=== PATIENT | male | born 1955 | race Two or more races ===

== ENCOUNTER 2019-02-24 09:05 | Inpatient (IN) | payer SELFPAY ==
[2019-02-24] MEDS ORDERED: NS 0.9% 1000 ML** 1,000 ML IV ONE ×2 (09:20→10:45)
[2019-02-24] MEDS ORDERED: Morphine 4 MG/ML VIAL (1 ml) 4 MG/ML VIAL IV ONE (09:20)
[2019-02-24] MEDS ORDERED: Ondansetron INJ* 2 MG/ML VIAL IV ONE (09:20)
--- NOTE | 2019-02-24 09:27 | ED ---
HPI Diabetic - HPI Summary HPI Summary: Patient is a 63 y/o diabetic male who presents to [facility] with complaints of high BG, abdominal pain and N/V. Family is in the room. Patient primarily speaks Upper Sorbian, family assists with translation. Patient has not been taking his Janumet for the past four days. Per triage, "pt comes to the ER with elevated blood sugars in the 400's this morning". Abdominal pain has been diffuse. He notes that he has had around 10-15 episodes of emesis over the past four days. Patient has also been experiencing intermittent chills and hot flashes. He denies Hx of DKA or any other medical issues with exception of diabetes. PSHx of left inguinal hernia repair. He denies tobacco, alcohol, and substance usage. FMHx of diabetes is noted. Patient lives in the [place] and is here in [place] helping family move. On triage, pain is rated 7/10, nothing is noted to aggravate/alleviate Sx. Home medications and allergies are reviewed. - History Of Current Complaint Chief Complaint: EDDiabeticProb Hx Obtained From: Patient, Family/House Nurse Onset/Duration: Lasting Days, Still Present Timing: Days Severity Currently: Severe Character: Alert Aggravating: Nothing Alleviating: Nothing Associated Signs & Symptoms: Abdominal Pain, Chills, Nausea, Vomiting - Allergies/Home Medications Allergies/Adverse Reactions: Allergies Allergy/AdvReac Type Severity Reaction Status Date / Time No Known Allergies Allergy Verified 02/24/19 09:11 Home Medications: Home Medications Sitagliptin Phos/Metformin HCl [Janumet 50-1000 mg] 1 tab PO BID 02/24/19 [ History Confirmed 02/24/19] PMH/Surg Hx/FS Hx/Imm Hx Endocrine/Hematology History: Reports: Hx Diabetes Cardiovascular History: Denies: Hx Hypertension - Surgical History Surgery Procedure, Year, and Place: left inguinal hernia repair Infectious Disease History: No Infectious Disease History: Denies: Traveled Outside the [place] in Last 30 Days - Family History Known Family History: Positive: Diabetes - Social History Alcohol Use: None Substance Use Type: Reports: None Smoking Status (MU): Never Smoked Tobacco Review of Systems Constitutional: Other - positive - hot flashes, elevated BG Positive: Chills Positive: Abdominal Pain, Vomiting, Nausea All Other Systems Reviewed And Are Negative: Yes Physical Exam - Summary Physical Exam Summary: Constitutional: Well-developed, Well-nourished, Alert. (-) Distressed Skin: Warm, Dry HENT: Normocephalic; Atraumatic Eyes: Conjunctiva normal Neck: Musculoskeletal ROM normal neck. (-) JVD, (-) Stridor, (-) Tracheal deviation Cardio: Rhythm regular, rate normal, Heart sounds normal; Intact distal pulses; Radial pulses are 2+ and symmetric. (-) Murmur Pulmonary/Chest wall: Effort normal. (-) Respiratory distress, (-) Wheezes, (-) Rales Abd: Soft, Diffuse abdominal tenderness, particularly in the epigastrium; (-) Distension, (-) Guarding, (-) Rebound Musculoskeletal: (-) Edema Lymph: (-) Cervical adenopathy Neuro: Alert, Oriented x3 Psych: Mood and affect Normal Triage Information Reviewed: Yes Vital Signs On Initial Exam: Initial Vitals Temp Pulse Resp BP Pulse Ox 97.6 F 129 16 121/88 99 02/24/19 09:06 02/24/19 09:06 02/24/19 09:06 02/24/19 09:06 02/24/19 09:06 Vital Signs Reviewed: Yes Diagnostics - Vital Signs Vital Signs Temp Pulse Resp BP Pulse Ox 02/24/19 09:06 97.6 F 129 16 121/88 99 - Laboratory Result Diagrams: 02/24/19 10:09 02/24/19 10:09 Lab Statement: Any lab studies that have been ordered have been reviewed, and results considered in the medical decision making process. - CT CT ABD/PEL CT Interpretation Completed By: Radiologist Summary of CT Findings: IMPRESSION: 1. MID TO DISTAL SMALL BOWEL OBSTRUCTION WHICH APPEARS TO BE SECONDARY TO A LEFT INGUINAL. HERNIA. 2. DIFFUSE GALLBLADDER WALL THICKENING WHICH CAN BE FURTHER EVALUATED WITH A RIGHT UPPER. QUADRANT ULTRASOUND. 3. COMPLEX RIGHT RENAL CYST RECOMMEND A RENAL ULTRASOUND FOR FURTHER EVALUATION. 4. NONOBSTRUCTING RIGHT RENAL CALCULI. THIS REPORT WAS REVIEWED BY DR. GUEVARA Re-Evaluation - Re-Evaluation First Eval Re-Evaluation Time: 13:00 Comment: CT ABD/PEL were discussed, he notes that he has not had a bowel movement in four days at this time. Diabetic Course/Dx - Course Course Of Treatment: Patient is here with a small bowel obstruction and hyperglycemia. Patient is not in DKA per her labs. Patient had a CT scan which showed a belt struck the transition point at the site of a left inguinal hernia. Patient clinically does not have a left inguinal hernia. Surgery was called and agreed that there was no hernia. Patient had NG tube placed. Patient is admitted to medicine - Diagnoses Provider Diagnoses: SBO (small bowel obstruction), Hyperglycemia, Vomiting, Abdominal pain - Physician Notifications Discussed Care Of Patient With: Ursula Villagomez Time Discussed With Above Provider: 13:12 Instructed by Provider To: Other - Patient's case was discussed with Dr. Villagomez, Dr. Villagomez will review scan and come to ED to evaluate the patient. 1410 - Dr. Villagomez in room to evaluate the patient. 1426 - Patient's case was discussed, Dr. Villagomez recommends admit to hospitalist, NG tube, NPO. 1442 - Dr. Garza accepts for admission. Discharge ED - Sign-Out/Discharge Documenting (check all that apply): Patient Departure - admit - Discharge Plan Condition: Stable Disposition: ADMITTED TO [facility] Referrals: No Primary Care Phys,NOPCP [Primary Care Provider] - - Billing Disposition and Condition Condition: STABLE Disposition: Admitted to [facility] - Attestation Statements Document Initiated by Mulugeta: Yes Documenting Scribe: ERIK STUBBS Provider For Whom Reginoe is Documenting (Include Credential): WERNER GUEVARA MD Scribe Attestation: ERIK Iraheta, scribed for WERNER GUEVARA MD on 02/24/19 at 1651. Scribe Documentation Reviewed: Yes Provider Attestation: The documentation as recorded by the ERIK toussaint accurately reflects the service I personally performed and the decisions made by me, WERNER GUEVARA MD Status of Scribe Document: Viewed Procedures - Sedation Patient Received Moderate/Deep Sedation with Procedure: No
[2019-02-24 10:23] LABS: ABS Eosinophils 0.1 10^3/ul (0-0.6); ABS Lymphocytes 0.8 10^3/ul (1.0-4.8); ABS Monocytes 0.5 10^3/ul (0-0.8); ABS Neutrophils 2.7 10^3/ul (1.5-7.7); Eosinophil % 1.5 %; Hematocrit 44 % (42-52); Hemoglobin 15.2 g/dL (14.0-18.0); Lymphocyte % 19.5 %; Mean Corpuscular HGB Conc 34 g/dL (31-36); Mean Corpuscular Hemoglobin 31 pg (27-31); Mean Corpuscular Volume 91 fL (80-94); Mean Platelet Volume 9.1 fL (7.4-10.4); Nucleated Red Blood Cells % 0.1; Platelet Count 260 10^3/uL (150-450); Red Blood Count 4.88 10^6 /uL (4.18-5.48); Red Cell Distribution Width 13 % (10-15); White Blood Count 4.1 10^3/uL (3.5-10.8)
[2019-02-24 10:39] LABS: Albumin 4.8 g/dL (3.2-5.2); Albumin/Globulin Ratio 1.5 (1-3); BUN/Creatinine Ratio 32.8 (8-20); Calcium 9.9 mg/dL (8.6-10.3); EGFR African American 72.6 (>60); Globulin 3.2 g/dL (2-4)
[2019-02-24 10:51] LABS: Potassium 4.5 mmol/L (3.5-5.0)
[2019-02-24] MEDS ORDERED: Iodixanol* (CONTRAST) 320 MG/ML 100 ML SDV IV ONE (11:06)
--- NOTE | 2019-02-24 15:33 | CONS ---
CONSULTATION REPORT: DATE OF CONSULT: 02/24/19 SERVICE: General Surgery. ATTENDING SURGEON: Dr. Ursula Villagomez. REASON FOR CONSULT: Small bowel obstruction. HISTORY OF PRESENT ILLNESS: Mr. Salinas is a very pleasant 63-year-old gentleman with a history of diabetes who presents to the emergency room with complaints of 4 days of epigastric abdominal pain, nausea, and vomiting as well as hyperglycemia. He was found to have blood glucose levels into the 400s. However, given his history of the nausea and vomiting, an abdominal CT scan was performed that showed a small bowel obstruction with a transition point near the left inguinal region. The patient is accompanied today by his family members. He is originally from the [place] and is visiting [place] to see his family. He says that he was in his normal state of health until Tuesday of this week. He says that he started developing periumbilical abdominal pain. He said after this he had vomiting, and then after he vomited, he noticed that his left inguinal hernia was bothering him; however, when he did not vomit, he did not notice any bulge in his left inguinal region. He says that the bulge in his left inguinal canal occurred after the vomiting and not before. Since Tuesday, he has continued to have abdominal pain, vomiting, and inability to tolerate much p.o. He also says that he has not passed any gas or had a bowel movement since Tuesday. He has a history of having a right inguinal hernia repair that was done in approximately 2005 done [facility] in [facility]. He said at that time his surgeon told him he had a very small left inguinal hernia. He said that his left inguinal hernia has never bothered him at all until he started vomiting recently and then it began to protrude. He said he last vomited yesterday evening. Currently, he has no complaints about his inguinal canal. He complains only of having some abdominal pain. PAST MEDICAL HISTORY: Diabetes. PAST SURGICAL HISTORY: Open right inguinal hernia repair. MEDICATIONS: Janumet mg p.o. b.i.d. ALLERGIES: No known drug allergies. FAMILY HISTORY: Positive for diabetes. SOCIAL HISTORY: The patient lives in the [place]. He is a nonsmoker. REVIEW OF SYSTEMS: Negative except for abdominal pain and emesis. PHYSICAL EXAM: Vital Signs: Temperature is 97.6, pulse is 90s to 100, respiratory rate is 19, O2 sat is 96% O2 on room air, blood pressure is 125/82. General: He is an older gentleman, lying on the stretcher, in no apparent distress, conversing easily. HEENT is normocephalic, atraumatic. Cardiovascular is regular rate and rhythm. Respiratory is clear to auscultation bilaterally. Abdomen is soft, minimally distended, not significantly tender, but the patient does have subjective pain with palpation throughout all 4 quadrants. Examination of the right inguinal region shows a well-healed open inguinal hernia incision. There is no evidence of right inguinal hernia with Valsalva while the patient is supine. In the left inguinal canal upon Valsalva while the patient is supine, there is no small bowel present in the inguinal canal. The inguinal canal deep ring is easily palpable. When the patient Valsalva, there is a bulge that can be felt at the tip of my finger at the inguinal canal. DIAGNOSTIC STUDIES/LAB DATA: White blood cell count is 4, hemoglobin is 15.2, hematocrit is 44, platelets are 260. Sodium is 129, potassium is 4.5, chloride is 87, CO2 is 27, BUN is 40, creatinine is 1.2, glucose is 421, lactic acid is 1 , calcium is 9.9. Total bilirubin is 2, AST is 17, ALT is 15, alkaline phosphatase is 89. Lipase is 33. Imaging/Radiology: Abdomen/pelvis CT with p.o. and IV contrast shows moderate distention of the proximal and mid small bowel. There is a transition point in the left lower quadrant and left inguinal region. There appears to be a hernia in that region containing fat and likely a portion of small bowel given that there is a transition point at that level. Appendix appears within normal limits. There are scattered diverticula. Diffuse gallbladder wall thickening, which can be further evaluated with a right upper quadrant ultrasound. Complex right renal cyst, recommend a renal ultrasound. Nonobstructing right renal calculi. ASSESSMENT AND PLAN: Mr. Salinas is a 63-year-old gentleman with a history of diabetes who comes in with hyperglycemia and abdominal pain, nausea, and vomiting for approximately [address] scan, he appears to have a small bowel obstruction with a transition point near the left inguinal region. I have reviewed this imaging and discussed this with the radiologist, Dr. Nguyen. There is small bowel in the transition point that is located near the left inguinal canal; however, the bowel does not appear to go through the actual inguinal canal, but it sits very close in proximity to it. There does appear to be fat contained within the inguinal canal. Furthermore, on my physical exam, he does not have any hernia contents within the left inguinal canal which can be palpated and the defect appears to be open. He does have a history of open right inguinal hernia repair in the past, but no other abdominal surgical history. Given that he does not have any evidence of incarcerated left inguinal hernia either on physical exam or definitively on abdominal CT imaging, I would recommend that the patient be admitted to Medicine. He requires control of his hyperglycemia and his electrolyte abnormalities. He should be made n.p.o. and have an NG tube placed. It would be best to have decompression of his small bowel at this time and then to determine whether or not he should undergo possibly a diagnostic laparoscopy with an transabdominal preperitoneal inguinal hernia repair at that time versus continued conservative management. Surgery will continue to follow. I discussed this with patient and Dr. Heller fro the ED and all are in agreement with this plan. [id number]/[facility] #: [id number] MTDJoselo
[2019-02-24] MEDS ORDERED: Ondansetron INJ* 2 MG/ML VIAL IV PRN (15:53)
[2019-02-24] MEDS ORDERED: Dextrose 50% VIAL 50 ml IV PUSH PRN (15:56)
[2019-02-24] MEDS ORDERED: Morphine INJ* 2 MG/ML 1 ML SYRINGE (TWO MG - NEW SYRINGE VERSION) IV PRN (15:59)
[2019-02-24] MEDS: NS 0.9% 1000 ML** 1,000 ML IV SCH (17:25)
[2019-02-24] MEDS: Pantoprazole IV* 40 MG IV SCH (17:42)
[2019-02-24] MEDS: Insulin LISPRO* 1 UNITS UNIT SUBCUT SCH (17:44)
--- NOTE | 2019-02-24 18:16 | HP ---
CC: Dr. Guerrero" in the [place] * HISTORY AND PHYSICAL: DATE OF ADMISSION: 02/24/19 PROVIDER: Laxmi Hernández NP PRIMARY CARE PROVIDER: Dr. Guerrero" in the [place]. ATTENDING PHYSICIAN WHILE IN THE HOSPITAL: Dr. Jackie Haro * (dictated by Laxmi Hernández NP). CHIEF COMPLAINT: Abdominal pain, nausea, and vomiting. HISTORY OF PRESENT ILLNESS: Mr. Salinas is a 63-year-old male with a past medical history significant for diabetes for which he takes oral medications, who presented to the emergency room with complaints of high blood sugar, abdominal pain, nausea, and vomiting. The patient primarily speaks Irish, but does understand some Greek. Family does help with translation. The patient does report that he has had abdominal pain for 4 days with nausea and vomiting, unable to tolerate food and fluids x4 days. He has not been taking his meds at home. This morning, his blood sugar was over 400 at home, so he presented to the emergency room for further evaluation. While in the emergency room, the patient was found to have a small bowel obstruction. He was seen by Dr. Villagomez from Surgery, who recommended an NG. Due to the patient's small bowel obstruction and hyperglycemia, Hospital Medicine was asked to see and evaluate the patient for admission. PAST MEDICAL HISTORY: Significant for type 2 diabetes. PAST SURGICAL HISTORY: Hernia repair in 2005. HOME MEDICATIONS: Include Janumet. ALLERGIES: No known drug allergies. FAMILY HISTORY: No reported history of coronary artery disease. Mother with diabetes. No reported history of cancer. SOCIAL HISTORY: Denies any tobacco, alcohol, or illicit drug use. He is . Surrogate decision maker in the event he is unable to make his own decisions is his daughter. He is a full code. REVIEW OF SYSTEMS: He denies any fevers, unintended weight loss, chest pain, edema, cough, hemoptysis, or shortness of breath. He does report nausea, vomiting. Denies any diarrhea. He does report diffuse abdominal pain x4 days. Denies any hematuria, dysuria, focal weakness, sensory loss, visual complaints, dysphagia, arthralgias, myalgias, rashes, lesions, open sores, psychosis, or anxiety. PHYSICAL EXAMINATION GENERAL: At this time, Mr. Salinas is a 63-year-old male. He is alert and oriented, resting on the stretcher in the emergency room. He is in no acute distress. VITAL SIGNS: Blood pressure 121/71, heart rate 101, respirations 16, O2 saturation 96%, temperature was 97.6. HEENT: Head is atraumatic, normocephalic. Eyes: EOMs are intact. Sclerae anicteric and not pale. Oral mucosa appeared to be moist. NECK: Supple. LUNGS: Clear to auscultation bilaterally. No wheezes, rales, or rhonchi. CARDIAC: S1, S2. Regular rate and rhythm. No murmurs, rubs, or gallops. ABDOMEN: Soft and nontender. Bowel sounds are present x4, they are hypoactive and high-pitched in the lower abdomen. EXTREMITIES: He is able to move all 4 extremities. There is no clubbing or cyanosis. NEUROLOGIC: He is awake, alert, oriented x3. Speech is clear. Thought process is intact. There are no gross focal deficits. SKIN: Intact. DIAGNOSTIC STUDIES/LAB DATA: WBCs are 4.1, RBCs 4.88, hemoglobin 15.2, hematocrit 44, platelet count is 260. Sodium 129; potassium 4.5; chloride 87; carbon dioxide was 27; anion gap was 15; BUN was 40; creatinine 1.22; glucose was 421, repeat was 306; lactic acid was 1.0; calcium 9.9. Total bilirubin 2.00 , ASTs were 17, ALTs were 15, alkaline phosphatase was 89. Lipase was 33. Urine is currently pending. He had a CT of the abdomen and pelvis, radiologist's impression: 1. Mid to distal small bowel obstruction appears to be secondary to left inguinal hernia. 2. Diffuse gallbladder wall thickening, which can be further evaluated with a right upper quadrant ultrasound. Complex renal cyst, recommend ultrasound for further evaluation. Nonobstructing right renal calculi. ASSESSMENT AND PLAN: Mr. Salinas is a 63-year-old male with type 2 diabetes, who will be admitted to the hospital for small bowel obstruction. 1. Small bowel obstruction. The patient was seen by Surgery, who recommended NG and small bowel decompression. NG has been placed to low intermittent wall suction. We will continue with IV fluids. The patient will be n.p.o. Abdomen is currently soft and nontender at this time. We will continue with serial abdominal exams. 2. Left renal cyst. Radiology has recommended a renal ultrasound for further evaluation of this. This could be followed up with his primary care provider. 3. Diabetes. The patient has type 2 diabetes. I will hold his Janumet and place him on lispro sliding scale with Accu-Cheks every 6 hours while he is n.p.o. 3. FEN: He is n.p.o. 4. Code status: He is a full code. 5. DVT prophylaxis: I will place him on SCDs. 6. Disposition: The patient will be placed inpatient on medical floor, short- stay surgical. TIME SPENT: Time spent on this admission was approximately 60 minutes, greater than half that time was spent at the bedside reviewing events leading thus far to his hospitalization, performing physical exam, and reviewing my plan of care. I have discussed this with my attending, Dr. Jackie Haro; she is in agreement with my plan. LAXMI HERNÁNDEZ, ALANA [id number]/[facility] #: [id number] DAGOBERTO
[2019-02-25] MEDS: Insulin LISPRO* 1 UNITS UNIT SUBCUT SCH ×5 (00:29→21:56)
[2019-02-25] MEDS: NS 0.9% 1000 ML** 1,000 ML IV SCH ×3 (03:18→16:52)
[2019-02-25 03:40] LABS: Urine Appearance Cloudy; Urine Bilirubin Negative (Negative); Urine Blood Negative (Negative); Urine Color Yellow; Urine Glucose 3+(>=500 mg/dL) (Negative); Urine Ketones 2+ (Negative); Urine Nitrite Negative (Negative); Urine Protein Negative (Negative); Urine Specific Gravity 1.033 (1.010-1.030); Urine Urobilinogen Negative (Negative)
[2019-02-25 06:00] LABS: ABS Eosinophils 0.1 10^3/ul (0-0.6); ABS Monocytes 0.5 10^3/ul (0-0.8); ABS Neutrophils 2.9 10^3/ul (1.5-7.7); Eosinophil % 2.1 %; Hematocrit 42 % (42-52); Hemoglobin 13.9 g/dL (14.0-18.0); Lymphocyte % 21.9 %; Mean Corpuscular HGB Conc 33 g/dL (31-36); Mean Corpuscular Hemoglobin 31 pg (27-31); Mean Corpuscular Volume 92 fL (80-94); Mean Platelet Volume 9.1 fL (7.4-10.4); Platelet Count 268 10^3/uL (150-450); Red Blood Count 4.55 10^6 /uL (4.18-5.48); Red Cell Distribution Width 13 % (10-15); White Blood Count 4.5 10^3/uL (3.5-10.8)
[2019-02-25 06:22] LABS: Calcium 9.1 mg/dL (8.6-10.3); EGFR African American 114.8 (>60); EGFR Non-African American 94.9 (>60); Potassium 3.8 mmol/L (3.5-5.0)
--- NOTE | 2019-02-25 09:38 | PN ---
Subjective Date of Service: 02/25/19 Interval History: Patient seen resting in bed. States that he has passed flatus three times this AM, denies nausea/vomiting, feels hungry. NG tube draining scant amounts of dark green/brown fluid. Denies fever, chills, chest pain, or shortness of breath. No acute distress noted. Family History: Unchanged from Admission Social History: Unchanged from Admission Past Medical History: Unchanged from Admission Objective Active Medications: Dextrose (Dextrose 50% Vial 50 Ml*) 25 ml IV PUSH .FOR FS < 60 - SS PRN PRN Reason: FS < 60 Sodium Chloride (Ns 0.9% 1000 Ml) 1,000 mls @ 100 mls/hr IV PER RATE [facility] Last Admin: 02/25/19 03:18 Dose: 100 mls/hr Insulin Human Lispro (Humalog*) 0 units SUBCUT Q6HR [facility]; Protocol Last Admin: 02/25/19 06:22 Dose: 2 units Morphine Sulfate (Morphine Inj (Syringe))*) 2 mg IV Q4H PRN PRN Reason: PAIN - SEVERE Ondansetron HCl (Zofran Inj*) 4 mg IV Q4H PRN PRN Reason: NAUSEA/VOMITING Pantoprazole Sodium (Protonix Iv*) 40 mg IV Q24H [facility] Last Admin: 02/24/19 17:42 Dose: 40 mg Vital Signs - 8 hr 02/25/19 02/25/19 02/25/19 03:17 07:22 08:00 Temperature 98.5 F 98.3 F Pulse Rate 101 100 Respiratory 16 18 18 Rate Blood Pressure 122/60 113/61 (mmHg) O2 Sat by Pulse 99 97 Oximetry Oxygen Devices in Use Now: None Appearance: Well developed gentleman seen resting in bed, no acute distress. Eyes: No Scleral Icterus, PERRLA Ears/Nose/Mouth/Throat: NL Teeth, Lips, Gums, Clear Oropharnyx, - - Mucous membranes slightly dry. NG tube in place draining scant amoun of dark green/ brown gastric contents. Neck: NL Appearance and Movements; NL JVP, Trachea Midline Respiratory: Symmetrical Chest Expansion and Respiratory Effort, Clear to Auscultation, - - Diminished in bases. Cardiovascular: NL Sounds; No Murmurs; No JVD, RRR, No Edema Abdominal: NL Sounds; No Tenderness; No Distention Lymphatic: No Cervical Adenopathy Extremities: No Edema, No Clubbing, Cyanosis Skin: No Rash or Ulcers, No Nodules or Sclerosis Neurological: Alert and Oriented x 3, NL Sensation Lines/Tubes/Other Access: Clean, Dry and Intact Peripheral IV Nutrition: - - NPO due to NG tube Result Diagrams: 02/25/19 05:44 02/25/19 05:44 Assess/Plan/Problems-Billing Assessment: This is a 63 year old with a PMH of right inguinal hernia with repair who was admitted 02/24/19 for bowel obstruction, likely due to left inguinal hernia. Patient is from the [place], wishes to go back home to undergo left hernia repair with the surgeon who fixed the right side. - Patient Problems (1) Bowel obstruction Current Visit: Yes Status: Acute Code(s): K56.609 - UNSP INTESTNL OBST, UNSP TO PARTIAL VERSUS COMPLETE OBST SNOMED Code(s): 86817826 Comment: -Likely due to left inguinal hernia. Dr. Villagomez has been consulted, recommended conservative management. Patient is improving, is passing flatus today, denies abdominal pain, abdomen is soft, non-tender, hypoactive +BSx4 and he feels hungry. Surgery agrees it is a good idea to remove NG tube, start clear liquids. -Continue protonix. -Patient is from the [place] and would like to return home though Dr. Zayas will likely offer a robotics guided hernia repair on Tuesday if he wants to stay for it. (2) Metabolic alkalosis Current Visit: Yes Status: Acute Code(s): E87.3 - ALKALOSIS SNOMED Code(s) : 8855760 Comment: -Anion gap of 16, noted fruity breath. Alkalosis likely due to NG tube aspiration of gastric contents. NG tube to be removed this AM. Will monitor. -Continue IV fluids. (3) Left renal mass Current Visit: Yes Status: Acute Code(s): N28.89 - OTHER SPECIFIED DISORDERS OF KIDNEY AND URETER SNOMED Code(s): 806990615 Comment: -Cyst discovered in imaging. Radiology has recommended renal ultrasound for further evaluation. Patient should follow up with primary care provider about this. (4) Diabetes type 2, uncontrolled Current Visit: Yes Status: Acute Code(s): E11.65 - TYPE 2 DIABETES MELLITUS WITH HYPERGLYCEMIA SNOMED Code(s): 680083109 Comment: -Patient was not taking his Janumet several days prior to admission , have came in hyperglycemic in the 400's. Janumet held while NPO. -Will change fingerstick BG from Q6H to ACHS now that he is on clear liquids. -Add lantus due to persistently high glucouses ranging from 300-400's. (5) Tachycardia Current Visit: Yes Status: Acute Code(s): R00.0 - TACHYCARDIA, UNSPECIFIED SNOMED Code(s): 5957005 Comment: Heart rate in the high 90's to low 100's since yesterday, asymptomatic. Very low likelihood this is a PE. Likely due to metabolic alkalosis. (6) Full code status Current Visit: Yes Status: Acute Code(s): Z78.9 - OTHER SPECIFIED HEALTH STATUS SNOMED Code(s): 991844778 (7) DVT prophylaxis Current Visit: Yes Status: Acute Code(s): Z29.9 - ENCOUNTER FOR PROPHYLACTIC MEASURES, UNSPECIFIED SNOMED Code(s): 068149211 Comment: -SCD's Status and Disposition: Condition: Fair Disposition: Admit inpatient, discharge tomorrow. Attending: Kristina Prescott
--- NOTE | 2019-02-25 11:33 | PN ---
Progress Note - Progress Note Date of Service: 02/25/19 Note: Surgery Progress Note S: Patient is doing very well. His NGT was removed this morning (had less than 400cc output). His abdominal pain is gone, he has been tolerating clear liquids with no emesis or nausea. He is passing flatus and ambulating. O: Vital Signs - 24 hr 02/24/19 02/24/19 02/24/19 11:37 12:00 12:07 Temperature Pulse Rate 97 97 99 Respiratory Rate Blood Pressure 138/79 123/73 (mmHg) O2 Sat by Pulse 98 95 95 Oximetry 02/24/19 02/24/19 02/24/19 12:56 13:00 13:08 Temperature Pulse Rate 99 95 100 Respiratory Rate Blood Pressure 124/78 125/82 (mmHg) O2 Sat by Pulse 98 98 96 Oximetry 02/24/19 02/24/19 02/24/19 13:37 14:00 14:07 Temperature Pulse Rate 96 97 102 Respiratory Rate Blood Pressure 123/74 118/77 (mmHg) O2 Sat by Pulse 96 97 96 Oximetry 02/24/19 02/24/19 02/24/19 14:37 15:00 15:07 Temperature Pulse Rate 99 106 106 Respiratory Rate Blood Pressure 122/73 117/72 (mmHg) O2 Sat by Pulse 95 96 96 Oximetry 02/24/19 02/24/19 02/24/19 15:37 16:00 16:07 Temperature Pulse Rate 101 102 101 Respiratory Rate Blood Pressure 118/70 121/71 (mmHg) O2 Sat by Pulse 96 96 96 Oximetry 02/24/19 02/24/19 02/24/19 16:36 17:19 17:55 Temperature 97.6 F 98.7 F Pulse Rate 101 99 Respiratory 16 16 18 Rate Blood Pressure 121/71 124/66 (mmHg) O2 Sat by Pulse 96 99 Oximetry 02/24/19 02/24/19 02/25/19 19:30 19:47 00:03 Temperature 98.4 F 99.3 F Pulse Rate 98 102 Respiratory 16 18 17 Rate Blood Pressure 132/61 124/63 (mmHg) O2 Sat by Pulse 97 98 Oximetry 02/25/19 02/25/19 02/25/19 03:17 07:22 08:00 Temperature 98.5 F 98.3 F Pulse Rate 101 100 Respiratory 16 18 18 Rate Blood Pressure 122/60 113/61 (mmHg) O2 Sat by Pulse 99 97 Oximetry Laboratory Results - last 24 hr 02/24/19 02/24/19 02/24/19 09:22 13:04 13:12 WBC RBC Hgb Hct MCV MCH MCHC RDW Plt Count MPV Neut % (Auto) Lymph % (Auto) [place] % (Auto) Eos % (Auto) Baso % (Auto) Absolute Neuts (auto) Absolute Lymphs (auto) Absolute Monos (auto) Absolute Eos (auto) Absolute Basos (auto) Absolute Nucleated RBC Nucleated RBC % Sodium Potassium Chloride Carbon Dioxide Anion Gap BUN Creatinine Est GFR ( Amer) Est GFR (Non-Af Amer) BUN/Creatinine Ratio Glucose POC Glucose (mg/dL) > 444 H* 305 H Lactic Acid 1.0 Calcium Urine Color Urine Appearance Urine pH Ur Specific [place] Urine Protein Urine Ketones Urine Blood Urine Nitrate Urine Bilirubin Urine Urobilinogen Ur Leukocyte Esterase Urine Glucose 02/24/19 02/25/19 02/25/19 15:54 03:20 05:44 WBC 4.5 RBC 4.55 Hgb 13.9 L Hct 42 MCV 92 MCH 31 MCHC 33 RDW 13 Plt Count 268 MPV 9.1 Neut % (Auto) 63.9 Lymph % (Auto) 21.9 [place] % (Auto) 11.4 Eos % (Auto) 2.1 Baso % (Auto) 0.7 Absolute Neuts (auto) 2.9 Absolute Lymphs (auto) 1.0 Absolute Monos (auto) 0.5 Absolute Eos (auto) 0.1 Absolute Basos (auto) 0.0 Absolute Nucleated RBC 0.0 Nucleated RBC % 0.0 Sodium Potassium Chloride Carbon Dioxide Anion Gap BUN Creatinine Est GFR ( Amer) Est GFR (Non-Af Amer) BUN/Creatinine Ratio Glucose POC Glucose (mg/dL) 306 H Lactic Acid Calcium Urine Color Yellow Urine Appearance Cloudy Urine pH 5.0 Ur Specific [place] 1.033 H Urine Protein Negative Urine Ketones 2+ A Urine Blood Negative Urine Nitrate Negative Urine Bilirubin Negative Urine Urobilinogen Negative Ur Leukocyte Esterase Negative Urine Glucose 3+(>=500 mg/dl) A 02/25/19 05:44 WBC RBC Hgb Hct MCV MCH MCHC RDW Plt Count MPV Neut % (Auto) Lymph % (Auto) [place] % (Auto) Eos % (Auto) Baso % (Auto) Absolute Neuts (auto) Absolute Lymphs (auto) Absolute Monos (auto) Absolute Eos (auto) Absolute Basos (auto) Absolute Nucleated RBC Nucleated RBC % Sodium 135 Potassium 3.8 Chloride 99 L Carbon Dioxide 20 L Anion Gap 16 H BUN 23 Creatinine 0.82 Est GFR ( Amer) 114.8 Est GFR (Non-Af Amer) 94.9 BUN/Creatinine Ratio 28.0 H Glucose 213 H POC Glucose (mg/dL) Lactic Acid Calcium 9.1 Urine Color Urine Appearance Urine pH Ur Specific [place] Urine Protein Urine Ketones Urine Blood Urine Nitrate Urine Bilirubin Urine Urobilinogen Ur Leukocyte Esterase Urine Glucose Intake & Output 02/24/19 02/25/19 02/25/19 22:59 06:59 14:59 Intake Total 0 980 Output Total 125 200 0 Balance -125 780 0 Weight 126 lb Intake: IV Fluids 980 NS (0.9%) 980 Oral 0 0 Output: NG Tube Drainage Amount 125 200 Urine 0 0 0 Physical exam: Abdomen- soft, non tender, non distended, very minimally distended. Left inguinal hernia with no contents within the inguinal canal A/P: 63 M with a history of a right inguinal hernia repair with SBO secondary either to incarcerated left inguinal hernia that reduced vs. adhesions, now much improved. - I discussed with patient and his family (daughter translating) that his SBO may have been from his left inguinal hernia or possibly adhesions. He lives in the [place] and wishes to go home as soon as possible. I told him he should have his LIH repaired very soon and that this bowel obstruction can recur. He does not wish to have surgery here and says he will go home to see his surgeon who repaired his RIH in the next 1-2 weeks. - Patient strongly wishes to go home today. I advised he should continue clears and soft food slowly. I advised he should return to the ED for worsening abdominal pain, nausea, emesis. He and his family understand all of this and agree.
[2019-02-25] MEDS: Pantoprazole IV* 40 MG IV SCH (15:52)
[2019-02-25] MEDS ORDERED: Insulin LISPRO* 1 UNITS UNIT SUBCUT SCH (16:30)
[2019-02-25 16:37] LABS: Magnesium 1.9 mg/dL (1.9-2.7)
[2019-02-25] MEDS ORDERED: Insulin GLARGINE(*) 1 UNITS UNIT SUBCUT SCH (21:00)
[2019-02-26] MEDS: NS 0.9% 1000 ML** 1,000 ML IV SCH (03:07)
[2019-02-26 05:57] LABS: ABS Eosinophils 0.1 10^3/ul (0-0.6); ABS Lymphocytes 1.4 10^3/ul (1.0-4.8); ABS Monocytes 0.4 10^3/ul (0-0.8); ABS Neutrophils 2.7 10^3/ul (1.5-7.7); Eosinophil % 2.6 %; Hematocrit 37 % (42-52); Hemoglobin 12.2 g/dL (14.0-18.0); Lymphocyte % 30.7 %; Mean Corpuscular HGB Conc 33 g/dL (31-36); Mean Corpuscular Hemoglobin 31 pg (27-31); Mean Corpuscular Volume 92 fL (80-94); Mean Platelet Volume 8.8 fL (7.4-10.4); Platelet Count 222 10^3/uL (150-450); Red Blood Count 3.97 10^6 /uL (4.18-5.48); Red Cell Distribution Width 12 % (10-15); White Blood Count 4.6 10^3/uL (3.5-10.8)
[2019-02-26 06:09] LABS: BUN/Creatinine Ratio 12.3 (8-20); Calcium 8.3 mg/dL (8.6-10.3); EGFR African American 116.5 (>60); EGFR Non-African American 96.2 (>60); Potassium 3.9 mmol/L (3.5-5.0)
[2019-02-26] MEDS: Insulin LISPRO* 1 UNITS UNIT SUBCUT SCH (09:23)
--- NOTE | 2019-02-26 09:51 | PN ---
Progress Note - Progress Note Date of Service: 02/26/19 Note: Surgery Progress Note S: Patient feels very well this morning. He denies pain. He had a large BM yesterday evening and said he has felt much better since. He has been tolerating CLD. Yesterday afternoon he said he vomited after eating some ice cream and felt it was because it had too much sugar. He is very hungry. O: Vital Signs - 24 hr 02/25/19 02/25/19 02/25/19 11:42 15:50 20:30 Temperature 98.1 F 98.1 F 98.9 F Pulse Rate 104 99 96 Respiratory 18 16 16 Rate Blood Pressure 131/61 119/83 119/64 (mmHg) O2 Sat by Pulse 99 98 100 Oximetry 02/25/19 02/26/19 02/26/19 21:40 00:00 03:18 Temperature 98.3 F 98.0 F Pulse Rate 94 85 Respiratory 16 17 17 Rate Blood Pressure 112/53 108/53 (mmHg) O2 Sat by Pulse 99 98 Oximetry 02/26/19 02/26/19 07:35 08:00 Temperature 97.9 F Pulse Rate 86 Respiratory 15 15 Rate Blood Pressure 99/56 (mmHg) O2 Sat by Pulse 99 Oximetry Laboratory Results - last 24 hr 02/24/19 02/25/19 02/25/19 17:28 00:18 05:44 WBC RBC Hgb Hct MCV MCH MCHC RDW Plt Count MPV Neut % (Auto) Lymph % (Auto) [place] % (Auto) Eos % (Auto) Baso % (Auto) Absolute Neuts (auto) Absolute Lymphs (auto) Absolute Monos (auto) Absolute Eos (auto) Absolute Basos (auto) Absolute Nucleated RBC Nucleated RBC % Sodium 135 Potassium 3.8 Chloride 99 L Carbon Dioxide 20 L Anion Gap 16 H BUN 23 Creatinine 0.82 Est GFR ( Amer) 114.8 Est GFR (Non-Af Amer) 94.9 BUN/Creatinine Ratio 28.0 H Glucose 213 H POC Glucose (mg/dL) 302 H 154 H Calcium 9.1 Magnesium 1.9 02/25/19 02/25/19 02/25/19 06:14 13:19 16:22 WBC RBC Hgb Hct MCV MCH MCHC RDW Plt Count MPV Neut % (Auto) Lymph % (Auto) [place] % (Auto) Eos % (Auto) Baso % (Auto) Absolute Neuts (auto) Absolute Lymphs (auto) Absolute Monos (auto) Absolute Eos (auto) Absolute Basos (auto) Absolute Nucleated RBC Nucleated RBC % Sodium Potassium Chloride Carbon Dioxide Anion Gap BUN Creatinine Est GFR ( Amer) Est GFR (Non-Af Amer) BUN/Creatinine Ratio Glucose POC Glucose (mg/dL) 205 H 302 H 190 H Calcium Magnesium 02/25/19 02/26/19 02/26/19 21:31 05:19 05:19 WBC 4.6 RBC 3.97 L Hgb 12.2 L Hct 37 L MCV 92 MCH 31 MCHC 33 RDW 12 Plt Count 222 MPV 8.8 Neut % (Auto) 58.1 Lymph % (Auto) 30.7 [place] % (Auto) 8.1 Eos % (Auto) 2.6 Baso % (Auto) 0.5 Absolute Neuts (auto) 2.7 Absolute Lymphs (auto) 1.4 Absolute Monos (auto) 0.4 Absolute Eos (auto) 0.1 Absolute Basos (auto) 0.0 Absolute Nucleated RBC 0.0 Nucleated RBC % 0.0 Sodium 135 Potassium 3.9 Chloride 105 Carbon Dioxide 23 Anion Gap 7 BUN 10 Creatinine 0.81 Est GFR ( Amer) 116.5 Est GFR (Non-Af Amer) 96.2 BUN/Creatinine Ratio 12.3 Glucose 192 H POC Glucose (mg/dL) 183 H Calcium 8.3 L Magnesium 02/26/19 08:43 WBC RBC Hgb Hct MCV MCH MCHC RDW Plt Count MPV Neut % (Auto) Lymph % (Auto) [place] % (Auto) Eos % (Auto) Baso % (Auto) Absolute Neuts (auto) Absolute Lymphs (auto) Absolute Monos (auto) Absolute Eos (auto) Absolute Basos (auto) Absolute Nucleated RBC Nucleated RBC % Sodium Potassium Chloride Carbon Dioxide Anion Gap BUN Creatinine Est GFR ( Amer) Est GFR (Non-Af Amer) BUN/Creatinine Ratio Glucose POC Glucose (mg/dL) 284 H Calcium Magnesium Intake & Output 02/25/19 02/26/19 02/26/19 22:59 06:59 14:59 Intake Total 1924 400 Output Total 1000 0 0 Balance 924 400 0 Weight 120 lb 1.6 oz Intake: IV Fluids 1324 NS (0.9%) 1324 Oral 600 400 Output: Urine 600 0 0 Emesis 400 Abdomen- soft, NTND, left inguinal hernia is reduced A/P: 63 M with SBO and LIH, SBO resolving and patient having bowel function again. - Recommend advancing diet slowly as tolerated - Patient did have emesis yesterday, probably can go home tomorrow if he continues to have bowel function and can tolerate PO today with no further vomiting
[2019-02-26 11:09] VITALS: BP 115/61
--- NOTE | 2019-02-26 13:24 | DS ---
AMENDED REPORT NOW INCLUDES DESIGNATED COSIGNER - ESIGNED BEFORE ADJUSTMENTS DISCHARGE SUMMARY: DATE OF ADMISSION: 02/24/19 DATE OF DISCHARGE: 02/26/19 PROVIDER: Shiva Kowalski NP ATTENDING PHYSICIAN: Dr. Thomas * (DICTATED BY SHIVA KOWALSKI NP) PRIMARY CARE PHYSICIAN: Provider down in the [place], name unknown. CONSULTING PHYSICIAN: Dr. Villagomez PRIMARY DIAGNOSIS: Bowel obstruction with left inguinal hernia. SECONDARY DIAGNOSIS: Diabetes. PROCEDURES: None. STUDIES: CT of abdomen and pelvis showed mid to distal small bowel obstruction which appeared to be secondary to left inguinal hernia, diffuse gallbladder wall thickening, and complex right renal cyst, recommended renal ultrasound for further evaluation of a nonobstructing right renal calculi. PERTINENT LAB DATA: RBC 3.97, hemoglobin 12.2, hematocrit 37. POC glucose 284. Calcium 8.3, potassium 3.9. Urine negative. HOSPITAL COURSE: This is a 63-year-old male with past medical history significant for diabetes, who presented to the emergency room on 02/24/19 with hyperglycemia, abdominal pain, nausea, and vomiting. During the course of stay , he received an NG tube, which was removed on 02/25/19. During that time, he had metabolic alkalosis which resolved once the NG tube was pulled. The patient was treated conservatively. Dr. Villagomez had consulted on the patient. The patient was offered to have left inguinal hernia repair here in the hospital, though the patient is originally from [place] and wished to go back to see his surgeon who had done his previous right inguinal hernia repair for surgery. Today, the patient is alert and oriented. He denies any chest pain, shortness of breath, abdominal pain, nausea or vomiting and is tolerating full liquid diet. Had bowel movement yesterday. He is passing flatus. Continued to note fruity breath though anion gap is closed and no other signs of metabolic acidosis or alkalosis. REVIEW OF SYSTEMS: An 11-point system review was performed, which was negative again for any nausea, vomiting, abdominal pain and is positive for flatus and bowel movements. PHYSICAL EXAMINATION: Vital Signs: Temperature 98.2 Fahrenheit, 93 pulse, 16 respirations, 98% oxygen on room air, and 115/61 blood pressure. General: This is a well-developed and well-groomed gentleman seen sitting up in bed in no acute distress. Eyes: Conjunctivae pink and moist. EOMs intact. PERRLA. ENT: Oropharynx is clear. Mucous membranes moist. Neck: Supple. Cardiac: S1 , S2 present. Heart rate regular. No murmurs, gallops, or rubs appreciated. Pulmonary: Lung sounds clear throughout bilaterally on room air. No accessory muscle use noted. Abdomen was soft, nontender, nondistended with positive bowel sounds x4. Extremities: He is able to move all 4 extremities. No clubbing or cyanosis noted. Neurologic: No focal deficits appreciated. Sensation intact to light touch throughout. Skin is intact. Psych: Alert and oriented x4. Thought content organized, able to express needs despite being primarily [place] speaking. DISCHARGE PLAN: Diet is to start off with full liquids, progressive as is tolerated. Activities as tolerated. The patient is to return to the emergency room if he has an increase in abdominal distention, pain, nausea, vomiting, chest pain, shortness of breath. Plan for the conditions: 1. For left inguinal hernia, I have recommend followup with surgeon in the [place] for repair. Advance diet as tolerated. 2. For left renal cyst, follow up with primary care provider for renal ultrasound. 3. Diabetes. Continue Janumet and follow up with primary care within a week to reevaluate medications. The patient is to do the fingersticks twice a day until then as he normally only does once a day. DISCHARGE MEDICATIONS: The patient is to continue his Janumet one tab b.i.d. CONDITION UPON DISCHARGE: Stable. DISPOSITION: To home. TIME SPENT: Time spent on this patient is about 30 minutes. SHIVA KOWALSKI, ALANA [id number]/CPS #: [id number]
== END 2019-02-26 14:00 | disposition home or self-care (01) | DRG 394 ==
LOC: ED 09:05 → SSU 15:29
PROVIDERS: ADMIT Internal Medicine; ATTEND Internal Medicine
DX: K40.30 Unilateral inguinal hernia, with obstruction, without gangrene, not specified as recurrent (principal); E87.3 Alkalosis; K40.90 Unilateral inguinal hernia, without obstruction or gangrene, not specified as recurrent; N28.1 Cyst of kidney, acquired; N20.0 Calculus of kidney; E11.65 Type 2 diabetes mellitus with hyperglycemia; Z79.84 Long term (current) use of oral hypoglycemic drugs; Z83.3 Family history of diabetes mellitus
CPT/HCPCS: 36415; 74177; 80048; 80053; 81003; 83605; 83690; 83735; 85025; 96361; 96374; 96375; 99284; J2270; J2405; Q9967